=== PATIENT | female | born 1935 | race Two or more races ===

== ENCOUNTER 2022-02-04 17:19 | Inpatient (IN) | payer MEDICAID, OTHER ==
[~2022-02-04] VITALS: Ht 154.9 cm; Wt 61.5 kg
[2022-02-04] MEDS ORDERED: SODIUM CHLORIDE 0.9% 1,000 ML IV ONE ×2 (17:45→18:00)
[2022-02-04 18:32] LABS: Albumin 2.7 g/dL (3.4-5.0); Calcium 8.1 mg/dL (8.5-10.1); Potassium 4.5 mmol/L (3.5-5.1)
[2022-02-04 18:36] LABS: BUN/Creatinine Ratio 19.9; Bilirubin, Total 0.5 mg/dL (0.2-1.0); Total Protein 6.2 g/dL (6.4-8.2)
[2022-02-04 19:41] LABS: Urine Amorphous Crystal FEW /hpf (None Seen); Urine Bacteria MOD /hpf (None Seen); Urine Blood Negative /uL (Negative); Urine Specific Gravity 1.022 (1.001-1.035); Urine WBC 4 /hpf (0 - 5)
[2022-02-04] MEDS ORDERED: NOREPINEPHRINE 8 MG/250ML KIT 250 ML IV ONE (20:15)
[2022-02-04 20:18] LABS: Basophils # (auto) 0 10 ^3/uL (0-0.2); Basophils % (auto) 0.5 % (0.0-2.0); Eosinophils # (auto) 0 10 ^3/uL (0-0.8); Eosinophils % (auto) 0.4 % (0.0-7.0); Hematocrit 44.3 % (36.0-46.0); Hemoglobin 14.3 g/dL (12.2-16.2); Lymphocytes # (auto) 0.6 10 ^3/uL (0.4-5.4); Lymphocytes % (auto) 12.8 % (10.0-50.0); Mean Corpuscular Hemoglobin 29.5 pg (28.0-32.0); Mean Corpuscular Hgb Conc. 32.4 g/dL (32.0-36.0); Mean Corpuscular Volume 91.2 fL (80.0-100.0); Monocytes # (auto) 0.5 10 ^3/uL (0-1.3); Monocytes % (auto) 11.2 % (0.0-12.0); Neutrophils # (auto) 3.5 10 ^3/uL (1.6-8.6); Neutrophils % (auto) 75.1 % (37.0-80.0); Nucleated Red Blood Cells % 0.2 %; Red Blood Cells 4.85 10^6/uL (4.0-5.20); Red Cell Distribution Width 14.2 % (11.8-14.3); White Blood Cell 4.7 10^3/uL (4.4-10.8)
[2022-02-04] MEDS: NOREPINEPHRINE 8 MG/250ML KIT 250 ML IV SCH (20:45)
[2022-02-04] MEDS ORDERED: DOCUSATE SOD 100 MG CAP PO PRN (22:00)
[2022-02-04] MEDS ORDERED: ALBUMIN 25% 100 ML IV ONE (22:00)
[2022-02-04] MEDS ORDERED: MORPHINE SULFATE INJ 2 MG/ml SYRG IV PRN (23:45)
[2022-02-04] MEDS ORDERED: NITROGLYCERIN 0.4 MG SL TAB SL PRN (23:45)
[2022-02-05] VITALS (20 sets, daily range): BP systolic 113–186; BP diastolic 38–72
[2022-02-05] MEDS: HEPARIN SODIUM (PORCINE) 5000 UNITS/ML 1ML VIAL SC SCH ×3 (00:04→22:52)
[2022-02-05] MEDS: SODIUM CHLORIDE 0.9% 1,000 ML IV SCH ×3 (00:04→12:08)
[2022-02-05] MEDS ORDERED: LORazepam 2MG/ML-1ML VIAL ONE (03:22)
[2022-02-05] MEDS: LORazepam 2MG/ML-1ML VIAL IV PRN ×2 (03:48→04:39)
[2022-02-05 06:32] LABS: Basophils # (auto) 0 10 ^3/uL (0-0.2); Basophils % (auto) 0.5 % (0.0-2.0); Eosinophils # (auto) 0 10 ^3/uL (0-0.8); Eosinophils % (auto) 0.4 % (0.0-7.0); Hematocrit 46.7 % (36.0-46.0); Hemoglobin 14.9 g/dL (12.2-16.2); Lymphocytes # (auto) 0.9 10 ^3/uL (0.4-5.4); Lymphocytes % (auto) 14.6 % (10.0-50.0); Mean Corpuscular Hemoglobin 29.6 pg (28.0-32.0); Mean Corpuscular Hgb Conc. 31.9 g/dL (32.0-36.0); Monocytes # (auto) 0.7 10 ^3/uL (0-1.3); Neutrophils # (auto) 4.7 10 ^3/uL (1.6-8.6); Neutrophils % (auto) 73.5 % (37.0-80.0); Nucleated Red Blood Cells % 0.1 %; Red Blood Cells 5.02 10^6/uL (4.0-5.20); Red Cell Distribution Width 13.9 % (11.8-14.3); White Blood Cell 6.4 10^3/uL (4.4-10.8)
[2022-02-05 06:43] LABS: Albumin 3.1 g/dL (3.4-5.0); Potassium 4.7 mmol/L (3.5-5.1)
[2022-02-05 06:47] LABS: BUN/Creatinine Ratio 28.6; Bilirubin, Total 0.8 mg/dL (0.2-1.0); Total Protein 6.4 g/dL (6.4-8.2)
[2022-02-05] MEDS: FAMOTIDINE (10MG/ML) 2ML VL IV SCH (10:45)
[2022-02-05] MEDS: NOREPINEPHRINE 8 MG/250ML KIT 250 ML IV SCH (12:25)
[2022-02-05] MEDS ORDERED: HYDROCORTISONE SOD SUCC 100 MG/2ML INJ VIAL IV ONE (13:15)
[2022-02-05] MEDS ORDERED: ALBUTEROL SULF 2.5 MG/0.5ML(0.5%) NEB SOLN NEB PRN (13:15)
[2022-02-05] MEDS ORDERED: MIDAZOLAM DRIP 50 mg/50mL 50 ML IV ONE (14:11)
[2022-02-05] MEDS ORDERED: fentaNYL Drip 2500mCg/250mlNS 250 ML IV ONE (14:14)
[2022-02-05] MEDS ORDERED: ETOMIDATE (2MG/ML) 20ML VIAL IV ONE (14:15)
[2022-02-05] MEDS ORDERED: PROPOFOL 100 ML IV SCH (14:15)
[2022-02-05] MEDS: MIDAZOLAM DRIP 50 mg/50mL 50 ML IV SCH ×2 (14:45→19:01)
[2022-02-05] MEDS: fentaNYL Drip 2500mCg/250mlNS 250 ML IV SCH (14:53)
[2022-02-05] MEDS: DOPamine 1600MCG/ML D5W 250 ML IV SCH (17:40)
[2022-02-05] MEDS: PIPERACILLIN-TAZOB 2.25GM 50 ML IV SCH (19:01)
[2022-02-05] MEDS: ACETAMINOPHEN 325 MG TAB PO PRN (19:01)
[2022-02-06] VITALS (68 sets, daily range): BP systolic 104–171; BP diastolic 43–76
[2022-02-06] MEDS: PIPERACILLIN-TAZOB 2.25GM 50 ML IV SCH ×5 (00:20→23:32)
[2022-02-06] MEDS ORDERED: LISI20TA28 PO (00:30)
[2022-02-06] MEDS ORDERED: HYDR25TA5 PO (00:30)
[2022-02-06] MEDS ORDERED: GABA300C10 PO (00:30)
[2022-02-06 03:45] LABS: Basophils # (auto) 0 10 ^3/uL (0-0.2); Basophils % (auto) 0.2 % (0.0-2.0); Eosinophils # (auto) 0 10 ^3/uL (0-0.8); Hematocrit 46.4 % (36.0-46.0); Hemoglobin 15.5 g/dL (12.2-16.2); Lymphocytes # (auto) 0.3 10 ^3/uL (0.4-5.4); Lymphocytes % (auto) 4.1 % (10.0-50.0); Mean Corpuscular Hemoglobin 30.3 pg (28.0-32.0); Mean Corpuscular Hgb Conc. 33.5 g/dL (32.0-36.0); Mean Corpuscular Volume 90.5 fL (80.0-100.0); Monocytes # (auto) 0.4 10 ^3/uL (0-1.3); Monocytes % (auto) 5.3 % (0.0-12.0); Neutrophils # (auto) 6.3 10 ^3/uL (1.6-8.6); Neutrophils % (auto) 90.4 % (37.0-80.0); Nucleated Red Blood Cells % 0.1 %; Red Blood Cells 5.12 10^6/uL (4.0-5.20); Red Cell Distribution Width 13.8 % (11.8-14.3)
[2022-02-06 04:56] LABS: BUN/Creatinine Ratio 38.9; Calcium 8.7 mg/dL (8.5-10.1); Potassium 3.8 mmol/L (3.5-5.1)
[2022-02-06] MEDS: MIDAZOLAM DRIP 50 mg/50mL 50 ML IV SCH ×4 (05:45→22:30)
[2022-02-06] MEDS: FAMOTIDINE (10MG/ML) 2ML VL IV SCH (10:50)
[2022-02-06] MEDS: HEPARIN SODIUM (PORCINE) 5000 UNITS/ML 1ML VIAL SC SCH ×2 (10:50→22:04)
[2022-02-06] MEDS ORDERED: DEXTROSE (50%) 50ML SYRG IV PRN (12:15)
[2022-02-06] MEDS: fentaNYL Drip 2500mCg/250mlNS 250 ML IV SCH (12:33)
[2022-02-06] MEDS: InsuLIN REG 1unit/0.01ml Soln (100units/ml) SC SCH ×2 (18:00→23:57)
[2022-02-06] MEDS: DOPamine 1600MCG/ML D5W 250 ML IV SCH (18:07)
[2022-02-06] MEDS: ACCU-CHEK COMFORT CURVE STRIP VI SCH ×2 (18:08→23:57)
[2022-02-06] MEDS: ACETAMINOPHEN 325 MG TAB PO PRN (23:10)
[2022-02-07] VITALS (86 sets, daily range): BP systolic 129–180; BP diastolic 45–100
[2022-02-07 04:15] LABS: Basophils # (auto) 0 10 ^3/uL (0-0.2); Basophils % (auto) 0.3 % (0.0-2.0); Eosinophils # (auto) 0 10 ^3/uL (0-0.8); Eosinophils % (auto) 0.4 % (0.0-7.0); Hematocrit 47.2 % (36.0-46.0); Hemoglobin 15.9 g/dL (12.2-16.2); Lymphocytes % (auto) 12.1 % (10.0-50.0); Mean Corpuscular Hemoglobin 29.9 pg (28.0-32.0); Mean Corpuscular Hgb Conc. 33.7 g/dL (32.0-36.0); Mean Corpuscular Volume 88.7 fL (80.0-100.0); Monocytes # (auto) 0.7 10 ^3/uL (0-1.3); Monocytes % (auto) 9.5 % (0.0-12.0); Neutrophils # (auto) 6.1 10 ^3/uL (1.6-8.6); Neutrophils % (auto) 77.7 % (37.0-80.0); Nucleated Red Blood Cells % 0.1 %; Red Blood Cells 5.33 10^6/uL (4.0-5.20); Red Cell Distribution Width 13.9 % (11.8-14.3); White Blood Cell 7.8 10^3/uL (4.4-10.8)
[2022-02-07 04:31] LABS: Calcium 8.5 mg/dL (8.5-10.1); Potassium 3.2 mmol/L (3.5-5.1)
[2022-02-07 04:33] LABS: BUN/Creatinine Ratio 28.8
[2022-02-07] MEDS: MIDAZOLAM DRIP 50 mg/50mL 50 ML IV SCH ×5 (05:29→22:41)
[2022-02-07] MEDS: InsuLIN REG 1unit/0.01ml Soln (100units/ml) SC SCH ×3 (06:00→18:00)
[2022-02-07] MEDS: ACCU-CHEK COMFORT CURVE STRIP VI SCH ×3 (06:10→18:02)
[2022-02-07] MEDS: PIPERACILLIN-TAZOB 2.25GM 50 ML IV SCH ×3 (06:10→18:01)
[2022-02-07] MEDS: SODIUM CHLORIDE 0.9% 1,000 ML IV SCH ×2 (07:31→17:00)
[2022-02-07] MEDS: HEPARIN SODIUM (PORCINE) 5000 UNITS/ML 1ML VIAL SC SCH ×2 (07:33→22:00)
[2022-02-07] MEDS: DOPamine 1600MCG/ML D5W 250 ML IV SCH (08:00)
[2022-02-07] MEDS: POTASSIUM CHL 20MEQ/100ML 100 ML IV SCH ×2 (08:00→08:50)
[2022-02-07] MEDS: FAMOTIDINE (10MG/ML) 2ML VL IV SCH (10:23)
[2022-02-07] MEDS ORDERED: Jevity 1.2 Cal/Fiber 1 Liter GT SCH (12:45)
[2022-02-07] MEDS ORDERED: MAGNESIUM SULFATE 1GM/100ML 100 ML IV ONE (12:52)
[2022-02-07] MEDS: MAGNESIUM SULFATE 1GM/100ML 100 ML IV SCH ×4 (13:00→16:00)
[2022-02-07] MEDS: HYDROCORTISONE SOD SUCC 100 MG/2ML INJ VIAL IV SCH ×2 (13:59→22:40)
[2022-02-07] MEDS: fentaNYL Drip 2500mCg/250mlNS 250 ML IV SCH (15:00)
[2022-02-07] MEDS ORDERED: Glucerna 1.2 Cal 1Liter BOTTLE GT SCH (18:15)
[2022-02-07 20:20] LABS: Magnesium 2.3 mg/dL (1.6-2.6); Potassium 3.6 mmol/L (3.5-5.1)
[2022-02-08] VITALS (85 sets, daily range): BP systolic 92–172; BP diastolic 42–80
[2022-02-08] MEDS: PIPERACILLIN-TAZOB 2.25GM 50 ML IV SCH ×4 (00:34→18:11)
[2022-02-08] MEDS: InsuLIN REG 1unit/0.01ml Soln (100units/ml) SC SCH ×4 (00:34→18:24)
[2022-02-08] MEDS: ACCU-CHEK COMFORT CURVE STRIP VI SCH ×4 (00:34→18:11)
[2022-02-08 03:54] LABS: Basophils # (auto) 0 10 ^3/uL (0-0.2); Basophils % (auto) 0.2 % (0.0-2.0); Eosinophils # (auto) 0 10 ^3/uL (0-0.8); Hematocrit 46.7 % (36.0-46.0); Hemoglobin 15.7 g/dL (12.2-16.2); Lymphocytes # (auto) 0.3 10 ^3/uL (0.4-5.4); Lymphocytes % (auto) 3.3 % (10.0-50.0); Mean Corpuscular Hemoglobin 29.5 pg (28.0-32.0); Mean Corpuscular Hgb Conc. 33.5 g/dL (32.0-36.0); Mean Corpuscular Volume 87.9 fL (80.0-100.0); Monocytes # (auto) 0.4 10 ^3/uL (0-1.3); Monocytes % (auto) 3.9 % (0.0-12.0); Neutrophils % (auto) 92.6 % (37.0-80.0); Nucleated Red Blood Cells % 0.1 %; Red Blood Cells 5.32 10^6/uL (4.0-5.20); Red Cell Distribution Width 13.5 % (11.8-14.3); White Blood Cell 9.7 10^3/uL (4.4-10.8)
[2022-02-08] MEDS: MIDAZOLAM DRIP 50 mg/50mL 50 ML IV SCH ×3 (07:25→17:15)
[2022-02-08] MEDS: SODIUM CHLORIDE 0.9% 1,000 ML IV SCH (07:28)
[2022-02-08 08:35] LABS: Calcium 8.4 mg/dL (8.5-10.1); Potassium 3.5 mmol/L (3.5-5.1)
[2022-02-08] MEDS ORDERED: POTASSIUM CHL 20MEQ/100ML 100 ML IV ONE (09:00)
[2022-02-08] MEDS: FAMOTIDINE (10MG/ML) 2ML VL IV SCH (09:41)
[2022-02-08] MEDS: HYDROCORTISONE SOD SUCC 100 MG/2ML INJ VIAL IV SCH ×2 (09:41→22:02)
[2022-02-08] MEDS: HEPARIN SODIUM (PORCINE) 5000 UNITS/ML 1ML VIAL SC SCH ×2 (09:41→22:00)
[2022-02-08] MEDS: fentaNYL Drip 2500mCg/250mlNS 250 ML IV SCH (15:46)
[2022-02-08] MEDS: DOPamine 1600MCG/ML D5W 250 ML IV SCH (18:10)
[2022-02-09] VITALS (87 sets, daily range): BP systolic 75–170; BP diastolic 44–76
[2022-02-09 04:27] LABS: Basophils # (auto) 0 10 ^3/uL (0-0.2); Basophils % (auto) 0.3 % (0.0-2.0); Eosinophils # (auto) 0 10 ^3/uL (0-0.8); Eosinophils % (auto) 0.1 % (0.0-7.0); Hematocrit 37.1 % (36.0-46.0); Hemoglobin 12.5 g/dL (12.2-16.2); Lymphocytes # (auto) 0.4 10 ^3/uL (0.4-5.4); Lymphocytes % (auto) 6.8 % (10.0-50.0); Mean Corpuscular Hemoglobin 29.5 pg (28.0-32.0); Mean Corpuscular Hgb Conc. 33.6 g/dL (32.0-36.0); Monocytes # (auto) 0.5 10 ^3/uL (0-1.3); Monocytes % (auto) 9.3 % (0.0-12.0); Neutrophils # (auto) 4.4 10 ^3/uL (1.6-8.6); Neutrophils % (auto) 83.5 % (37.0-80.0); Red Blood Cells 4.22 10^6/uL (4.0-5.20); Red Cell Distribution Width 13.6 % (11.8-14.3); White Blood Cell 5.2 10^3/uL (4.4-10.8)
[2022-02-09 04:41] LABS: INR 1.03 (0.9-1.15); Partial Thromboplastin Time 30.1 sec (24.6-33.4)
[2022-02-09 04:58] LABS: BUN/Creatinine Ratio 39.7; Calcium 8.1 mg/dL (8.5-10.1); Potassium 3.9 mmol/L (3.5-5.1)
[2022-02-09] MEDS: InsuLIN REG 1unit/0.01ml Soln (100units/ml) SC SCH ×5 (06:00→23:58)
[2022-02-09] MEDS: PIPERACILLIN-TAZOB 2.25GM 50 ML IV SCH ×5 (06:10→23:59)
[2022-02-09] MEDS: ACCU-CHEK COMFORT CURVE STRIP VI SCH ×5 (06:11→23:59)
[2022-02-09] MEDS: MIDAZOLAM DRIP 50 mg/50mL 50 ML IV SCH ×6 (07:25→23:15)
[2022-02-09] MEDS: SODIUM CHLORIDE 0.9% 1,000 ML IV SCH ×2 (07:26→18:09)
[2022-02-09] MEDS: HEPARIN SODIUM (PORCINE) 5000 UNITS/ML 1ML VIAL SC SCH ×2 (09:31→21:51)
[2022-02-09] MEDS: HYDROCORTISONE SOD SUCC 100 MG/2ML INJ VIAL IV SCH ×2 (09:41→21:50)
[2022-02-09] MEDS: FAMOTIDINE (10MG/ML) 2ML VL IV SCH (09:41)
[2022-02-09] MEDS ORDERED: SODIUM CHLORIDE 0.9% 1,000 ML IV SCH (13:00)
[2022-02-09] MEDS ORDERED: LIDOCAINE 2%HCL (LOCAL ANESTH.) INJ 10ml MDV ONE (14:49)
[2022-02-09] MEDS ORDERED: VANCOMYCIN HCL 1000 MG VL ONE (15:23)
[2022-02-09] MEDS ORDERED: FUROSEMIDE 20 MG/2 ML VIAL ONE (15:46)
[2022-02-09] MEDS: fentaNYL Drip 2500mCg/250mlNS 250 ML IV SCH (16:33)
[2022-02-09] MEDS: DOPamine 1600MCG/ML D5W 250 ML IV SCH (16:33)
[2022-02-09] MEDS: NOREPINEPHRINE 8 MG/250ML KIT 250 ML IV SCH (18:09)
[2022-02-10] VITALS (103 sets, daily range): BP systolic 73–188; BP diastolic 45–120
[2022-02-10 02:07] LABS: Magnesium 1.9 mg/dL (1.6-2.6); Potassium 3.6 mmol/L (3.5-5.1)
[2022-02-10] MEDS: MAGNESIUM SULFATE 1GM/100ML 100 ML IV SCH ×3 (03:00→05:58)
[2022-02-10] MEDS: MIDAZOLAM DRIP 50 mg/50mL 50 ML IV SCH ×4 (04:15→18:33)
[2022-02-10] MEDS: PIPERACILLIN-TAZOB 2.25GM 50 ML IV SCH ×4 (06:00→23:52)
[2022-02-10] MEDS: InsuLIN REG 1unit/0.01ml Soln (100units/ml) SC SCH ×4 (06:17→23:54)
[2022-02-10] MEDS: ACCU-CHEK COMFORT CURVE STRIP VI SCH ×4 (06:18→23:54)
[2022-02-10 08:52] LABS: BUN/Creatinine Ratio 37.7; Calcium 8.4 mg/dL (8.5-10.1); Potassium 3.4 mmol/L (3.5-5.1)
[2022-02-10 09:05] LABS: Basophils # (auto) 0 10 ^3/uL (0-0.2); Basophils % (auto) 0.2 % (0.0-2.0); Eosinophils # (auto) 0 10 ^3/uL (0-0.8); Hematocrit 43.6 % (36.0-46.0); Lymphocytes # (auto) 0.2 10 ^3/uL (0.4-5.4); Lymphocytes % (auto) 3.2 % (10.0-50.0); Mean Corpuscular Hgb Conc. 32.2 g/dL (32.0-36.0); Monocytes # (auto) 1.1 10 ^3/uL (0-1.3); Monocytes % (auto) 14.4 % (0.0-12.0); Neutrophils # (auto) 6.4 10 ^3/uL (1.6-8.6); Neutrophils % (auto) 82.2 % (37.0-80.0); Red Blood Cells 4.84 10^6/uL (4.0-5.20); Red Cell Distribution Width 13.9 % (11.8-14.3); White Blood Cell 7.8 10^3/uL (4.4-10.8)
[2022-02-10] MEDS: HEPARIN SODIUM (PORCINE) 5000 UNITS/ML 1ML VIAL SC SCH ×2 (09:40→22:00)
[2022-02-10] MEDS: FAMOTIDINE (10MG/ML) 2ML VL IV SCH (09:40)
[2022-02-10] MEDS: HYDROCORTISONE SOD SUCC 100 MG/2ML INJ VIAL IV SCH (09:40)
[2022-02-10] MEDS: SODIUM CHLORIDE 0.9% 1,000 ML IV SCH (10:30)
[2022-02-10] MEDS: POTASSIUM CHL 20MEQ/100ML 100 ML IV SCH ×2 (10:30→12:48)
[2022-02-10] MEDS: fentaNYL Drip 2500mCg/250mlNS 250 ML IV SCH ×2 (12:52→23:47)
[2022-02-10] MEDS: NOREPINEPHRINE 8 MG/250ML KIT 250 ML IV SCH (17:30)
[2022-02-11] VITALS (93 sets, daily range): BP systolic 86–183; BP diastolic 48–106
[2022-02-11] MEDS: MIDAZOLAM DRIP 50 mg/50mL 50 ML IV SCH ×5 (00:15→21:05)
[2022-02-11] MEDS: SODIUM CHLORIDE 0.9% 1,000 ML IV SCH (02:50)
[2022-02-11 04:34] LABS: BUN/Creatinine Ratio 45.1; Calcium 8.6 mg/dL (8.5-10.1); Potassium 3.5 mmol/L (3.5-5.1)
[2022-02-11 05:34] LABS: Mean Corpuscular Volume 90.6 fL (80.0-100.0)
[2022-02-11 05:37] LABS: Hematocrit 44.9 % (36.0-46.0); Hemoglobin 14.8 g/dL (12.2-16.2); Mean Corpuscular Hemoglobin 29.9 pg (28.0-32.0); Red Blood Cells 4.96 10^6/uL (4.0-5.20); Red Cell Distribution Width 13.8 % (11.8-14.3); White Blood Cell 8.5 10^3/uL (4.4-10.8)
[2022-02-11 05:40] LABS: Band Neutrophils % (manual) 0; Basophils % (manual) 0 (0.0-2.0); Blast Cells 0; Metamyelocytes % 0; Myelocytes % 0; Promyelocytes % 0; Reactive Lymphocytes 0
[2022-02-11] MEDS: ACCU-CHEK COMFORT CURVE STRIP VI SCH ×3 (05:58→18:22)
[2022-02-11] MEDS: PIPERACILLIN-TAZOB 2.25GM 50 ML IV SCH ×3 (05:58→18:21)
[2022-02-11] MEDS: InsuLIN REG 1unit/0.01ml Soln (100units/ml) SC SCH ×3 (05:58→18:00)
[2022-02-11 06:08] LABS: Lymphocytes % (manual) 11 (10.0-50.0)
[2022-02-11 06:09] LABS: Eosinophils % (manual) 1 (0-7); Monocytes % (manual) 19 (0-12)
[2022-02-11] MEDS: HEPARIN SODIUM (PORCINE) 5000 UNITS/ML 1ML VIAL SC SCH ×2 (09:13→22:00)
[2022-02-11] MEDS: FAMOTIDINE (10MG/ML) 2ML VL IV SCH (10:38)
[2022-02-11] MEDS: NOREPINEPHRINE 8 MG/250ML KIT 250 ML IV SCH (17:30)
[2022-02-12] VITALS (84 sets, daily range): BP systolic 80–171; BP diastolic 42–129
[2022-02-12] MEDS: MIDAZOLAM DRIP 50 mg/50mL 50 ML IV SCH ×5 (01:15→21:15)
[2022-02-12] MEDS: ACCU-CHEK COMFORT CURVE STRIP VI SCH ×4 (06:00→18:21)
[2022-02-12] MEDS: PIPERACILLIN-TAZOB 2.25GM 50 ML IV SCH ×4 (06:00→18:19)
[2022-02-12] MEDS: InsuLIN REG 1unit/0.01ml Soln (100units/ml) SC SCH ×4 (06:00→18:00)
[2022-02-12] MEDS: HEPARIN SODIUM (PORCINE) 5000 UNITS/ML 1ML VIAL SC SCH ×2 (10:00→22:00)
[2022-02-12] MEDS: FAMOTIDINE (10MG/ML) 2ML VL IV SCH (10:37)
[2022-02-12] MEDS: SODIUM CHLORIDE 0.9% 1,000 ML IV SCH ×2 (10:40→12:44)
[2022-02-12] MEDS: fentaNYL Drip 2500mCg/250mlNS 250 ML IV SCH (14:46)
[2022-02-12] MEDS: NOREPINEPHRINE 8 MG/250ML KIT 250 ML IV SCH (17:30)
[2022-02-13] VITALS (100 sets, daily range): BP systolic 83–176; BP diastolic 45–103
[2022-02-13] MEDS: PIPERACILLIN-TAZOB 2.25GM 50 ML IV SCH ×4 (00:26→18:11)
[2022-02-13] MEDS: ACCU-CHEK COMFORT CURVE STRIP VI SCH ×4 (00:27→18:10)
[2022-02-13] MEDS: MIDAZOLAM DRIP 50 mg/50mL 50 ML IV SCH ×5 (02:00→22:15)
[2022-02-13 03:46] LABS: Basophils # (auto) 0 10 ^3/uL (0-0.2); Basophils % (auto) 0.4 % (0.0-2.0); Eosinophils # (auto) 0.3 10 ^3/uL (0-0.8); Eosinophils % (auto) 4.9 % (0.0-7.0); Hematocrit 38.1 % (36.0-46.0); Lymphocytes # (auto) 0.6 10 ^3/uL (0.4-5.4); Lymphocytes % (auto) 9.3 % (10.0-50.0); Mean Corpuscular Hemoglobin 30.1 pg (28.0-32.0); Mean Corpuscular Hgb Conc. 34.1 g/dL (32.0-36.0); Mean Corpuscular Volume 88.5 fL (80.0-100.0); Monocytes # (auto) 0.6 10 ^3/uL (0-1.3); Monocytes % (auto) 9.8 % (0.0-12.0); Neutrophils # (auto) 4.9 10 ^3/uL (1.6-8.6); Neutrophils % (auto) 75.6 % (37.0-80.0); Red Blood Cells 4.31 10^6/uL (4.0-5.20); White Blood Cell 6.5 10^3/uL (4.4-10.8)
[2022-02-13] MEDS: fentaNYL Drip 2500mCg/250mlNS 250 ML IV SCH (03:49)
[2022-02-13 04:04] LABS: Albumin 1.8 g/dL (3.4-5.0); Calcium 7.8 mg/dL (8.5-10.1); Magnesium 1.6 mg/dL (1.6-2.6)
[2022-02-13 04:07] LABS: BUN/Creatinine Ratio 33.3
[2022-02-13 04:09] LABS: Bilirubin, Total 1.4 mg/dL (0.2-1.0); Total Protein 4.8 g/dL (6.4-8.2)
[2022-02-13 04:21] LABS: Potassium 2.7 mmol/L (3.5-5.1)
[2022-02-13] MEDS: InsuLIN REG 1unit/0.01ml Soln (100units/ml) SC SCH ×4 (06:00→18:00)
[2022-02-13] MEDS: POTASSIUM CHL 20MEQ/100ML 100 ML IV SCH ×5 (08:34→13:28)
[2022-02-13] MEDS: hydrALAZINE HCL 20 MG/ML VL IV PRN ×2 (09:04→18:45)
[2022-02-13] MEDS: FAMOTIDINE (10MG/ML) 2ML VL IV SCH (10:26)
[2022-02-13] MEDS: HEPARIN SODIUM (PORCINE) 5000 UNITS/ML 1ML VIAL SC SCH ×2 (10:27→21:53)
[2022-02-13] MEDS: SODIUM CHLORIDE 0.9% 1,000 ML IV SCH ×2 (11:36→21:30)
[2022-02-13] MEDS: NOREPINEPHRINE 8 MG/250ML KIT 250 ML IV SCH (17:30)
[2022-02-14] VITALS (95 sets, daily range): BP systolic 84–193; BP diastolic 34–130
[2022-02-14] MEDS: PIPERACILLIN-TAZOB 2.25GM 50 ML IV SCH ×5 (00:54→23:29)
[2022-02-14] MEDS: MIDAZOLAM DRIP 50 mg/50mL 50 ML IV SCH ×3 (03:15→13:15)
[2022-02-14] MEDS: fentaNYL Drip 2500mCg/250mlNS 250 ML IV SCH (04:00)
[2022-02-14 04:33] LABS: Basophils # (auto) 0 10 ^3/uL (0-0.2); Basophils % (auto) 0.3 % (0.0-2.0); Eosinophils # (auto) 0.1 10 ^3/uL (0-0.8); Eosinophils % (auto) 0.8 % (0.0-7.0); Hematocrit 41.3 % (36.0-46.0); Hemoglobin 13.4 g/dL (12.2-16.2); Lymphocytes # (auto) 0.4 10 ^3/uL (0.4-5.4); Lymphocytes % (auto) 4.4 % (10.0-50.0); Mean Corpuscular Hgb Conc. 32.5 g/dL (32.0-36.0); Mean Corpuscular Volume 89.1 fL (80.0-100.0); Monocytes # (auto) 1.1 10 ^3/uL (0-1.3); Monocytes % (auto) 11.7 % (0.0-12.0); Neutrophils # (auto) 7.7 10 ^3/uL (1.6-8.6); Neutrophils % (auto) 82.8 % (37.0-80.0); Red Blood Cells 4.64 10^6/uL (4.0-5.20); Red Cell Distribution Width 13.2 % (11.8-14.3); White Blood Cell 9.3 10^3/uL (4.4-10.8)
[2022-02-14 04:40] LABS: Calcium 8.6 mg/dL (8.5-10.1); Magnesium 1.6 mg/dL (1.6-2.6); Potassium 3.9 mmol/L (3.5-5.1)
[2022-02-14 04:43] LABS: BUN/Creatinine Ratio 33.3
[2022-02-14] MEDS: ACCU-CHEK COMFORT CURVE STRIP VI SCH ×5 (06:00→23:30)
[2022-02-14] MEDS: InsuLIN REG 1unit/0.01ml Soln (100units/ml) SC SCH ×5 (06:00→23:29)
[2022-02-14] MEDS: FAMOTIDINE (10MG/ML) 2ML VL IV SCH (10:09)
[2022-02-14] MEDS: HEPARIN SODIUM (PORCINE) 5000 UNITS/ML 1ML VIAL SC SCH ×2 (10:10→22:00)
[2022-02-14] MEDS: hydrALAZINE HCL 20 MG/ML VL IV PRN (10:20)
[2022-02-14] MEDS: MIDAZOLAM HCL 2MG/2ML 2ml VIAL (1mg/ml) IV PRN ×4 (11:05→23:05)
[2022-02-14] MEDS: SODIUM CHLORIDE 0.9% 1,000 ML IV SCH (14:10)
[2022-02-14] MEDS ORDERED: MIDAZOLAM HCL 2MG/2ML 2ml VIAL (1mg/ml) ONE (15:57)
[2022-02-14] MEDS: NOREPINEPHRINE 8 MG/250ML KIT 250 ML IV SCH (17:30)
[2022-02-14] MEDS ORDERED: AMIODARONE HCL 150 MG in D5W 5% 100 ML IV ONE (18:30)
[2022-02-14] MEDS ORDERED: AMIODARONE 450mg/250ml AE 250 ML IV SCH (18:45)
[2022-02-15] VITALS (53 sets, daily range): BP systolic 96–173; BP diastolic 34–112
[2022-02-15] MEDS: AMIODARONE 450mg/250ml AE 250 ML IV SCH ×2 (00:45→15:26)
[2022-02-15] MEDS: MIDAZOLAM HCL 2MG/2ML 2ml VIAL (1mg/ml) IV PRN ×5 (03:35→23:39)
[2022-02-15 04:28] LABS: Basophils # (auto) 0 10 ^3/uL (0-0.2); Basophils % (auto) 0.1 % (0.0-2.0); Eosinophils # (auto) 0 10 ^3/uL (0-0.8); Hematocrit 40.7 % (36.0-46.0); Hemoglobin 13.4 g/dL (12.2-16.2); Lymphocytes # (auto) 0.1 10 ^3/uL (0.4-5.4); Lymphocytes % (auto) 1.4 % (10.0-50.0); Mean Corpuscular Hemoglobin 29.8 pg (28.0-32.0); Mean Corpuscular Hgb Conc. 32.9 g/dL (32.0-36.0); Mean Corpuscular Volume 90.6 fL (80.0-100.0); Monocytes # (auto) 0.4 10 ^3/uL (0-1.3); Monocytes % (auto) 4.5 % (0.0-12.0); Neutrophils # (auto) 9.1 10 ^3/uL (1.6-8.6); Red Cell Distribution Width 13.6 % (11.8-14.3); White Blood Cell 9.6 10^3/uL (4.4-10.8)
[2022-02-15 04:50] LABS: Calcium 8.8 mg/dL (8.5-10.1); Potassium 3.9 mmol/L (3.5-5.1)
[2022-02-15 04:52] LABS: BUN/Creatinine Ratio 39.5
[2022-02-15] MEDS: InsuLIN REG 1unit/0.01ml Soln (100units/ml) SC SCH ×3 (05:47→18:00)
[2022-02-15] MEDS: PIPERACILLIN-TAZOB 2.25GM 50 ML IV SCH ×3 (05:47→17:24)
[2022-02-15] MEDS: ACCU-CHEK COMFORT CURVE STRIP VI SCH ×3 (05:53→17:24)
[2022-02-15] MEDS: SODIUM CHLORIDE 0.9% 1,000 ML IV SCH ×2 (05:55→09:30)
[2022-02-15] MEDS: FAMOTIDINE (10MG/ML) 2ML VL IV SCH (09:13)
[2022-02-15] MEDS: HEPARIN SODIUM (PORCINE) 5000 UNITS/ML 1ML VIAL SC SCH ×2 (09:21→22:48)
[2022-02-15] MEDS ORDERED: LIDOCAINE 2%HCL (LOCAL ANESTH.) INJ 10ml MDV ONE (12:16)
[2022-02-15] MEDS ORDERED: fentaNYL CITRATE 100 MCG/2 ML VL ONE (12:28)
[2022-02-15] MEDS ORDERED: MIDAZOLAM HCL 2MG/2ML 2ml VIAL (1mg/ml) ONE (12:28)
[2022-02-15 12:49] LABS: INR 1.12 (0.9-1.15); Partial Thromboplastin Time 24.5 sec (24.6-33.4)
[2022-02-15] MEDS: NOREPINEPHRINE 8 MG/250ML KIT 250 ML IV SCH (17:21)
[2022-02-15] MEDS: hydrALAZINE HCL 20 MG/ML VL IV PRN (18:08)
[2022-02-16] VITALS (43 sets, daily range): BP systolic 121–174; BP diastolic 34–95
[2022-02-16] MEDS: MIDAZOLAM HCL 2MG/2ML 2ml VIAL (1mg/ml) IV PRN ×2 (03:25→09:59)
[2022-02-16 03:41] LABS: Basophils # (auto) 0 10 ^3/uL (0-0.2); Basophils % (auto) 0.2 % (0.0-2.0); Eosinophils # (auto) 0 10 ^3/uL (0-0.8); Hematocrit 43.2 % (36.0-46.0); Hemoglobin 14.2 g/dL (12.2-16.2); Lymphocytes # (auto) 0.2 10 ^3/uL (0.4-5.4); Mean Corpuscular Hemoglobin 29.5 pg (28.0-32.0); Mean Corpuscular Hgb Conc. 32.8 g/dL (32.0-36.0); Mean Corpuscular Volume 89.9 fL (80.0-100.0); Monocytes # (auto) 0.9 10 ^3/uL (0-1.3); Monocytes % (auto) 5.7 % (0.0-12.0); Neutrophils # (auto) 14.1 10 ^3/uL (1.6-8.6); Neutrophils % (auto) 93.1 % (37.0-80.0); Nucleated Red Blood Cells % 0.1 %; Red Cell Distribution Width 13.6 % (11.8-14.3); White Blood Cell 15.2 10^3/uL (4.4-10.8)
[2022-02-16 04:00] LABS: Albumin 2.4 g/dL (3.4-5.0); Calcium 9.3 mg/dL (8.5-10.1); Potassium 3.8 mmol/L (3.5-5.1)
[2022-02-16 04:06] LABS: BUN/Creatinine Ratio 46.8; Bilirubin, Total 1.2 mg/dL (0.2-1.0); Total Protein 5.7 g/dL (6.4-8.2)
[2022-02-16] MEDS: PIPERACILLIN-TAZOB 2.25GM 50 ML IV SCH ×4 (06:00→17:42)
[2022-02-16] MEDS: InsuLIN REG 1unit/0.01ml Soln (100units/ml) SC SCH ×4 (06:00→17:49)
[2022-02-16] MEDS: ACCU-CHEK COMFORT CURVE STRIP VI SCH ×4 (06:17→17:49)
[2022-02-16] MEDS: AMIODARONE 450mg/250ml AE 250 ML IV SCH ×2 (06:46→22:10)
[2022-02-16] MEDS: HEPARIN SODIUM (PORCINE) 5000 UNITS/ML 1ML VIAL SC SCH ×2 (10:18→22:10)
[2022-02-16] MEDS: SODIUM CHLORIDE 0.9% 1,000 ML IV SCH (16:10)
[2022-02-16] MEDS ORDERED: TPN PER PHARMACY 0 ML IV SCH (17:15)
[2022-02-16] MEDS ORDERED: CLINIMIX PER PHARMACY 0 ML IV SCH (17:15)
[2022-02-16] MEDS ORDERED: FUROSEMIDE 20 MG/2 ML VIAL IV ONE (17:15)
[2022-02-16] MEDS: NOREPINEPHRINE 8 MG/250ML KIT 250 ML IV SCH (17:30)
[2022-02-16] MEDS ORDERED: DEXTROSE (50%) 50ML SYRG IV SCH (17:45)
[2022-02-16] MEDS: HYDROmorphone HCL 2 MG/ML VL/or syr IV PRN ×2 (17:48→22:08)
[2022-02-16] MEDS: ONDANSETRON HCL 4 MG/2 ML VIAL IV PRN ×2 (17:48→22:07)
[2022-02-16] MEDS ORDERED: CLINIMIX PER PHARMACY IV NR (20:00)
[2022-02-17] VITALS (63 sets, daily range): BP systolic 88–189; BP diastolic 31–143
[2022-02-17] MEDS: PIPERACILLIN-TAZOB 2.25GM 50 ML IV SCH ×4 (00:13→17:49)
[2022-02-17] MEDS: HYDROmorphone HCL 2 MG/ML VL/or syr IV PRN ×2 (02:15→08:27)
[2022-02-17] MEDS: ONDANSETRON HCL 4 MG/2 ML VIAL IV PRN ×2 (02:16→08:27)
[2022-02-17 03:28] LABS: Albumin 2.2 g/dL (3.4-5.0); Calcium 8.8 mg/dL (8.5-10.1); Magnesium 1.3 mg/dL (1.6-2.6)
[2022-02-17 03:31] LABS: Phosphorus 1.5 mg/dL (2.5-4.90); Total Protein 5.5 g/dL (6.4-8.2)
[2022-02-17 03:49] LABS: Potassium 2.7 mmol/L (3.5-5.1)
[2022-02-17] MEDS ORDERED: MAGNESIUM SULFATE 1GM/100ML 100 ML IV ONE ×5 (04:00→07:00)
[2022-02-17] MEDS ORDERED: POTASSIUM CHL 20MEQ/100ML 100 ML IV ONE (04:05)
[2022-02-17] MEDS: POTASSIUM CHL 20MEQ/100ML 100 ML IV SCH ×2 (04:08→07:39)
[2022-02-17] MEDS: InsuLIN REG 1unit/0.01ml Soln (100units/ml) SC SCH ×4 (05:45→17:53)
[2022-02-17] MEDS: ACCU-CHEK COMFORT CURVE STRIP VI SCH ×4 (05:46→17:49)
[2022-02-17] MEDS: SODIUM CHLORIDE 0.9% 1,000 ML IV SCH (08:26)
[2022-02-17] MEDS: HEPARIN SODIUM (PORCINE) 5000 UNITS/ML 1ML VIAL SC SCH ×2 (10:11→21:44)
[2022-02-17] MEDS ORDERED: SODIUM PHOSP 40 MEQ in D5W 5% 250 ML IV ONE (10:15)
[2022-02-17] MEDS: AMIODARONE 450mg/250ml AE 250 ML IV SCH (15:57)
[2022-02-17] MEDS: NOREPINEPHRINE 8 MG/250ML KIT 250 ML IV SCH (17:30)
[2022-02-17] MEDS ORDERED: TPN PER PHARMACY IV NR ×9 (20:00)
[2022-02-18] VITALS (39 sets, daily range): BP systolic 102–172; BP diastolic 19–88
[2022-02-18] MEDS: SODIUM CHLORIDE 0.9% 1,000 ML IV SCH (01:30)
[2022-02-18 04:07] LABS: Basophils # (auto) 0 10 ^3/uL (0-0.2); Basophils % (auto) 0.2 % (0.0-2.0); Eosinophils # (auto) 0 10 ^3/uL (0-0.8); Eosinophils % (auto) 0.1 % (0.0-7.0); Hematocrit 39.8 % (36.0-46.0); Hemoglobin 12.6 g/dL (12.2-16.2); Lymphocytes # (auto) 0.2 10 ^3/uL (0.4-5.4); Lymphocytes % (auto) 1.6 % (10.0-50.0); Mean Corpuscular Hemoglobin 28.7 pg (28.0-32.0); Mean Corpuscular Hgb Conc. 31.7 g/dL (32.0-36.0); Mean Corpuscular Volume 90.6 fL (80.0-100.0); Monocytes # (auto) 1.3 10 ^3/uL (0-1.3); Monocytes % (auto) 8.9 % (0.0-12.0); Neutrophils # (auto) 12.6 10 ^3/uL (1.6-8.6); Neutrophils % (auto) 89.2 % (37.0-80.0); Red Blood Cells 4.39 10^6/uL (4.0-5.20); Red Cell Distribution Width 13.4 % (11.8-14.3); White Blood Cell 14.1 10^3/uL (4.4-10.8)
[2022-02-18 04:33] LABS: Calcium 8.1 mg/dL (8.5-10.1); Magnesium 2.1 mg/dL (1.6-2.6); Potassium 3.4 mmol/L (3.5-5.1)
[2022-02-18 04:42] LABS: Bilirubin, Total 0.8 mg/dL (0.2-1.0); Total Protein 5.3 g/dL (6.4-8.2)
[2022-02-18] MEDS: InsuLIN REG 1unit/0.01ml Soln (100units/ml) SC SCH ×3 (05:51→12:19)
[2022-02-18] MEDS: PIPERACILLIN-TAZOB 2.25GM 50 ML IV SCH ×3 (05:52→12:03)
[2022-02-18] MEDS: ACCU-CHEK COMFORT CURVE STRIP VI SCH ×3 (05:52→12:04)
[2022-02-18] MEDS: AMIODARONE 450mg/250ml AE 250 ML IV SCH (05:53)
[2022-02-18] MEDS ORDERED: POTASSIUM CHL 20MEQ/100ML 100 ML IV ONE ×2 (08:00→09:45)
[2022-02-18] MEDS: HEPARIN SODIUM (PORCINE) 5000 UNITS/ML 1ML VIAL SC SCH (10:08)
[2022-02-18] MEDS: hydrALAZINE HCL 20 MG/ML VL IV PRN (16:04)
[2022-02-18] MEDS ORDERED: TPN PER PHARMACY IV NR ×10 (20:00)
== END 2022-02-18 18:00 | disposition hospice, home (50) | DRG 171 ==
LOC: EDBD 17:19 → ER 17:19 → EDBD 23:39 → TELE 23:39 → ICU WEST 02-05 18:21
PROVIDERS: ADMIT Nurse Practitioner Family; ATTEND Internal Medicine
PROC: 5A1955Z Respiratory Ventilation, Greater than 96 Consecutive Hours (ICD-10-PCS; 2022-02-05)
PROC: 0BH17EZ Insertion of Endotracheal Airway into Trachea, Via Natural or Artificial Opening (ICD-10-PCS; 2022-02-05)
PROC: 02HV33Z Insertion of Infusion Device into Superior Vena Cava, Percutaneous Approach (ICD-10-PCS; 2022-02-05)
PROC: B548ZZA Ultrasonography of Superior Vena Cava, Guidance (ICD-10-PCS; 2022-02-05)
PROC: 05HB33Z Insertion of Infusion Device into Right Basilic Vein, Percutaneous Approach (ICD-10-PCS; 2022-02-05)
PROC: B54MZZA Ultrasonography of Right Upper Extremity Veins, Guidance (ICD-10-PCS; 2022-02-05)
PROC: 0JH606Z Insertion of Pacemaker, Dual Chamber into Chest Subcutaneous Tissue and Fascia, Open Approach (ICD-10-PCS; principal; 2022-02-09)
PROC: 02H63JZ Insertion of Pacemaker Lead into Right Atrium, Percutaneous Approach (ICD-10-PCS; 2022-02-09)
PROC: 02HK3JZ Insertion of Pacemaker Lead into Right Ventricle, Percutaneous Approach (ICD-10-PCS; 2022-02-09)
PROC: 5A09357 Assistance with Respiratory Ventilation, Less than 24 Consecutive Hours, Continuous Positive Airway Pressure (ICD-10-PCS; 2022-02-14)
PROC: 0W9B30Z Drainage of Left Pleural Cavity with Drainage Device, Percutaneous Approach (ICD-10-PCS; 2022-02-15)
PROC: 5A0945A Assistance with Respiratory Ventilation, 24-96 Consecutive Hours, High Flow/Velocity Cannula (ICD-10-PCS; 2022-02-16)
DX: I44.2 Atrioventricular block, complete (principal); J96.21 Acute and chronic respiratory failure with hypoxia; J90 Pleural effusion, not elsewhere classified; G93.40 Encephalopathy, unspecified; N17.9 Acute kidney failure, unspecified; I95.9 Hypotension, unspecified; E88.09 Other disorders of plasma-protein metabolism, not elsewhere classified; R73.9 Hyperglycemia, unspecified; J98.11 Atelectasis; Z66 Do not resuscitate; J93.9 Pneumothorax, unspecified; I10 Essential (primary) hypertension; J44.9 Chronic obstructive pulmonary disease, unspecified; Z20.822 Contact with and (suspected) exposure to COVID-19; Z88.5 Allergy status to narcotic agent; I49.9 Cardiac arrhythmia, unspecified
CPT/HCPCS: 10005; 33208; 36415; 36600; 70450; 71045; 71250; 76775; 77012; 80048; 80053; 81001; 82140; 82805; 82962; 83036; 83605; 83735; 83880; 84100; 84132; 84478; 84484; 85007; 85025; 85027; 85610; 85730; 87040; 87070; 87077; 87081; 87186; 87205; 93005; 93306; 94002; 94003; 94640; 94660; 96361; 96365; 96367; 96375; 99152; 99291; A4618; C1729; C1785; G0378; J1815; J2001; J2250; J2405; J2543; J3480; J3490; J7060; P9047